=== PATIENT | female | born 1970 | race Asian ===

== ENCOUNTER 2017-01-13 01:54 | Emergency (ER) | payer OTHER ==
[~2017-01-13] VITALS: Ht 160 cm; Wt 101.6 kg
[2017-01-13 04:02] VITALS: BP 145/84; TEMP 97.7
== END 2017-01-13 04:03 | disposition home or self-care (01) ==
LOC: ED 01:54
DX: M17.11 Unilateral primary osteoarthritis, right knee (principal); W18.39XA Other fall on same level, initial encounter; Y93.E5 Activity, floor mopping and cleaning; Y92.098 Other place in other non-institutional residence as the place of occurrence of the external cause
CPT/HCPCS: 96372; 99283; J1885